=== PATIENT | male | born 1990 | race American Indian/Alaskan Native ===

== ENCOUNTER 2018-05-07 12:36 | Emergency (ER) | payer SELFPAY ==
[2018-05-07 14:01] VITALS: BP 97/59
--- NOTE | 2018-05-07 14:37 | XRay Report ---
RIGHT HAND, 3 views: History: Swelling, injury. There is diffuse soft tissue swelling. A nondisplaced transverse fracture is identified through the second metacarpal neck. No calcified callus is identified. The remaining bony structures and joint spaces are unremarkable. IMPRESSION: Fracture, second metacarpal neck.
[2018-05-07] MEDS ORDERED: MOTRIN PO ONE (16:23)
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
== END 2018-05-07 17:06 | disposition home or self-care (01) ==
LOC: ED 12:36
DX: S62.360A Nondisplaced fracture of neck of second metacarpal bone, right hand, initial encounter for closed fracture (principal); F17.200 Nicotine dependence, unspecified, uncomplicated; W51.XXXA Accidental striking against or bumped into by another person, initial encounter; Y93.89 Activity, other specified; Y92.89 Other specified places as the place of occurrence of the external cause; Y99.8 Other external cause status

== ENCOUNTER 2018-05-16 00:45 | Emergency (ER) | payer SELFPAY ==
[2018-05-16 02:44] VITALS: BP 100/64
== END 2018-05-16 01:00 | disposition left against medical advice (07) ==
LOC: ED 00:45
DX: S69.91XD Unspecified injury of right wrist, hand and finger(s), subsequent encounter (principal); Z53.21 Procedure and treatment not carried out due to patient leaving prior to being seen by health care provider; X58.XXXD Exposure to other specified factors, subsequent encounter

== ENCOUNTER 2019-11-11 17:58 | Emergency (ER) | payer SELFPAY ==
[2019-11-11 18:12] VITALS: BP 104/71
--- NOTE | 2019-11-11 18:52 | Emergency Department Report ---
Blank Doc - Documentation Documentation: 29-year-old male that presents with n/v and generalized weakness. This initial assessment/diagnostic orders/clinical plan/treatment(s) is/are subject to change based on patient's health status, clinical progression and re- assessment by fellow clinical providers in the ED. Further treatment and workup at subsequent clinical providers discretion. Patient/guardians urged not to elope from the ED as their condition may be serious if not clinically assessed and managed. Initial orders include: 1- Patient sent to [facility] for further evaluation and treatment 2- labs 3- UA
[2019-11-11 19:21] LABS: Bacteria,Urine 2+ /HPF (Negative); Bilirubin,Urine NEG (Negative); Blood,Urine SM (Negative); Color,Urine Yellow (Yellow); Mucus,Urine FEW /HPF; Protein,Urine <15 mg/dL mg/dL (Negative); Urobilinogen,Urine < 2.0 mg/dL (<2.0)
[2019-11-11 19:49] LABS: Basophils # (Auto) 0.1 K/mm3 (0.0-0.1); Basophils % (Auto) 0.5 % (0.0-1.8); Eosinophils # (Auto) 0.1 K/mm3 (0.0-0.4); Eosinophils % (Auto) 0.9 % (0.0-4.3); Hematocrit 43.4 % (35.5-45.6); Hemoglobin 14.2 gm/dl (11.8-15.2); Lymphocytes # (Auto) 2.2 K/mm3 (1.2-5.4); Lymphocytes % (Auto) 22.8 % (13.4-35.0); Mean Corpuscular HGB Conc 33 % (32-34); Mean Corpuscular Volume 91 fl (84-94); Monocytes % (Auto) 10.7 % (0.0-7.3); Platelet Count 231 K/mm3 (140-440); Red Blood Count 4.76 M/mm3 (3.65-5.03); Red Cell Distribution Width 12.8 % (13.2-15.2)
[2019-11-11 20:11] LABS: Albumin 4.5 g/dL (3.9-5); BUN/Creatinine Ratio 12; Blood Urea Nitrogen 12 mg/dL (9-20); Calcium 9.6 mg/dL (8.4-10.2); Hemolysis Index 109
[2019-11-11 20:14] LABS: Alanine Aminotransferase 16 units/L (7-56)
[2019-11-11] MEDS: ONDANSETRON 4 MG/2 ML INJ IV ONE (20:37)
[2019-11-11] MEDS: SODIUM CHLORIDE 0.9% 1000 ML 1,000 ML IV ONE (20:37)
[2019-11-11] MEDS: DICYCLOMINE 20 MG TAB PO ONE (20:37)
[2019-11-11] MEDS: FAMOTIDINE 20 MG TAB PO ONE (20:37)
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
== END 2019-11-11 21:33 | disposition home or self-care (01) ==
LOC: ED 17:58
DX: A08.4 Viral intestinal infection, unspecified (principal); R11.2 Nausea with vomiting, unspecified; R19.7 Diarrhea, unspecified; F17.200 Nicotine dependence, unspecified, uncomplicated; F12.20 Cannabis dependence, uncomplicated; Z79.1 Long term (current) use of non-steroidal anti-inflammatories (NSAID); Z79.899 Other long term (current) drug therapy
CPT/HCPCS: 36415; 80053; 81001; 83690; 85025; 96361; 96374; 99283; J2405; J7030